=== PATIENT | female | born 1960 | race Caucasian/White ===

== ENCOUNTER 2025-04-15 01:44 | Outpatient (CLI) | payer MEDICARE, SELFPAY ==
--- NOTE | 2025-04-15 | DI.RAD_ITS ---
Exam(s) RF BARIUM SWALLOW EXAM: RF BARIUM SWALLOW CLINICAL HISTORY: DYSPHAGIA R13.10 TECHNIQUE: 2D and realtime digital imaging was performed. CONTRAST MATERIAL: Oral barium contrast was administered. COMPARISON: No exams were available for comparison FINDINGS: CHEST X-RAY: The heart and pulmonary vasculature are within normal limits. The lungs are clear. No pleural effusion or pneumothorax is present. The bones are within normal limits for the patient's age. ESOPHAGRAM: The esophagus is patent with no evidence for erosions, fold thickening, strictures, or masses. With regards to the motility, there is a normal primary stripping wave. No tertiary contractions were noted. There is no hiatal hernia or gastroesophageal reflux. The patient ingested a barium tablet without difficulty. IMPRESSION: Normal esophogram. If there is continued clinical concern, a modified barium swallow with speech pathology may be considered for further evaluation. RADIATION DOSE DELIVERED: tessie Henderson=9.6 mGy
[2025-04-15] MEDS: Barium Sulfate 98% W/W 140 ML BTL PO (10:10)
[2025-04-15] MEDS: Barium Sulfate 60% W/V 355 ML BTL PO (10:11)
== END 2025-04-15 02:04 ==
PROVIDERS: PCP Family Medicine; Visit Provider Family Medicine
DX: R13.10 Dysphagia, unspecified (principal)
CPT/HCPCS: 74221; J3490

== ENCOUNTER 2025-06-22 03:25 | Outpatient (CLI) | payer MEDICARE, SELFPAY ==
--- NOTE | 2025-06-22 | DI.RAD_ITS ---
Exam(s) RF MODIFIED SPEECH BA SWALLOW TECHNIQUE: Modified barium swallow was performed in conjunction with speech pathology. CONTRAST MATERIAL: Oral barium Oral water soluble contrast was administered. COMPARISON: No exams were available for comparison FINDINGS: Note that this is not a dedicated esophagram. Please see speech pathologist report for details. Is no obvious aspiration demonstrated during the study. IMPRESSION: No evidence of aspiration or penetration. See separate speech pathologist report RADIATION DOSE DELIVERED: tessie Henderson=5.40 mGy
--- NOTE | 2025-06-22 08:25 | ST.MBS_ITS ---
Date of Service Date of service: 06/22/25 Time of Service: 09:00 Modified Barium Swallow Study Findings: Video fluoroscopic Swallowing Evaluation (VFSE) / Modified Barium Swallow Study (MBSS) Speech Language Pathology Report Patient referred for VFSE/MBSS from Dr. Keaton Manning (PCP @ [facility]) given persistent dysphagia symptoms. HPI & Patient report of function: Marina is a 64 year old female presenting with longstanding dysphagia which began after breast cancer treatment in 2017. She suspects it is getting worse though fluctuates- some days are better than others and some days I can choke just on my own saliva. She states it is not necessarily that food sticks or goes down the wrong way but feels it doesn't go down easily. She further endorses globus sensation which is present 95% of the time- not worse with laying down/eating/stress. She does have a history of reflux and is on Omeprazole and states no current reflux issues. She endorses a 40lb weight loss over the past year but weight is stabilized, appetite/energy improved, and hair loss stopped after recently starting thyroid medication. PMHx: HORACE, hx malignant neoplasm of breast s/p chemoradiation treatment in 2017, idiopathic peripheral neuropathy, GERD on 20mg Omeprazole, thyroid nodules Previous Imaging: - 04/2019: Nasolaryngoscopy with ENT for hoarseness. 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 Had speech therapy at [facility] but didn't feel it was helpful. - 03/2025: Barium swallow study was within normal limits. IMPRESSIONS: Oral pharyngeal swallow function appears within normal limits for age. No motor or sensory impairment identified; no aspiration or pharyngeal retention appreciated on study. Education was provided to Marina to discuss most common causes of globus sensation- reflux, post nasal drip, and/or muscle tension. With her persistent hoarseness, I do anticipate at least a component of muscle tension dysphagia/MTDg and would recommend participation in outpatient ST to address this. She has participated in voice therapy in the past at [facility] back in 2019 but did not find this helpful. She requested thinking about recommendations and agreed to this clinician phoning her in 2-3 weeks to discuss. Swallow safety is preserved; swallow efficiency is preserved. Overall swallow function appears safe/WFL. Patient appears to be at low risk for potential aspiration PNA and/or pulmonary compromise and low risk for malnutrition, low risk for dehydration. Diet modification is not indicated; non-oral nutrition is not indicated. Swallow prognosis is good. Positive factors include age/severity. Negative factors include time since onset, prior participation in ST (though over 5 years ago). Patient appears to be a fair-good candidate for behavioral swallow rehabilitation. RECOMMENDATIONS: Diet Texture Recommendation:? IDDSI LEVEL SOLIDS 7-Regular Solids LIQUIDS 0-Thin Liquids MEDICATIONS As tolerated. Consider in applesauce if large otherwise whole with water Risk Management Strategies:? Behavioral reflux precautions, including upright position during + 90 mins after meals. Small bites, approx [id number] Small sips, approx 10 mL PLAN: Therapy: Recommend subsequent outpatient session with [employer] [facility] to review results of today's exam and develop treatment plan as appropriate. May consider the following: Targeted exercises to address mucle tension dysphagia (MTDg), education re: reflux management Goals: LTG: Patient will optimize swallow efficiency/comfort in 6 weeks. STG: Patient will verbalize comprehension re: swallowing anatomy and physiology, results of MBSS, and muscle tension dysphagia dx. Patient will return demonstration of tension reducing exercises independently across 2/2 sessions. Patient will verbalize comprehension re: reflux strategies. Follow-up exam: N/A OBJECTIVE Videofluoroscopic Swallow Evaluation (VFSE/MBSS) was conducted in the lateral projection by Speech-Language Pathologist, in collaboration with Radiologist, to evaluate oropharyngeal swallow function. Anatomic view under fluoroscopy: WFL PO Barium Contrast Trials Oral barium water-soluble contrast was administered as follows: IDDSI Level 0 Varibar thin liquid (40% w/v) IDDSI Level 2 Varibar nectar thick/mildly thick liquid (40% w/v) IDDSI Level 4 Varibar pudding/pureed/extremely thick (40% w/v) IDDSI Level 7 Regular Solid: 1/2 jesica cracker coated in 3 mL Varibar pudding MBSImP Component Scores: COMPONENT Scale SCORE 1 Lip closure (0-4) 0 Resulted in no labial escape 2 Hold Position (0-3) 0 Maintained a cohesive bolus between tongue to palatal seal 3 Bolus Preparation (0-4) 0 Resulted in timely and efficient chewing and mashi ng 4 Bolus Transport (0-4) 0 Was with brisk tongue motion 5 Oral Residue (0-4) 1 Was a trace, lining oral structures 6 Swallow Initiation (0-4) 3 Occurred when the bolus head was in the pyriform sinuses 7 Soft Palate Elevation (0-4) 0 Resulted in no bolus between soft palate and t he pharyngeal wall 8 Laryngeal Elevation (0-3) 1 Was decreased with partial superior movement of thyroid cartilage/partial approximation of arytenoids to epiglottic petiole 9 Anterior Hyoid Motion (0-2) 0 Demonstrated complete anterior movement 10 Epiglottic Movement (0-2) 0 Resulted in complete inversion 11 Laryngeal Closure (0-2) 0 Was complete with no air or contrast in laryngeal vestibule 12 Pharyngeal Stripping Wave (0-2) 0 Was present and complete 13 Pharyngeal Contraction (0-3) 0 Was complete 14 PES Opening (0-3) 0 Was completely distended and complete duration with no obstruction of flow 15 Tongue Base Retraction (0-4) 1 Allowed a trace column of contrast or air between tongue base and pharyngeal wall 16 Pharyngeal Residue (0-4) 1 Showed a trace within or on pharyngeal structure s 17 Esophageal Clearance (0-4) 0 Was complete, with only a coating of contrast, if any Results: COMPONENT Scale SCORE 1 Oral Score (0-18) 3 2 Pharyngeal Score (0-29) 1 3 Esophageal Score (0-4) 0 Functional Oral Intake Scale: COMPONENT Scale SCORE 1 Pre-Study (1-7) 7 Total oral intake with no restrictions 2 Post-Study (1-7) 7 Total oral intake with no restrictions Penetration-Aspiration Scale: COMPONENT Scale SCORE 1 Thin liquid (1-8) 2 Contrast entered the airway, remained above the vocal folds, and was ejected from the airway. 2 [place] thick (1-8) 1 Contrast did not enter the airway 3 Honey thick (1-8) NA 4 Pudding thick (1-8) 1 Contrast did not enter the airway 5 Cookie (1-8) 1 Contrast did not enter the airway Trialed Compensatory Strategies & Outcome: Maneuvers Successful (+) Unsuccessful (-) Postures Successful (+) Unsuccessful (-) 3 second Preparatory Set? ? Chin Tuck Posture? ? Cough? ? Posterior Head tilt? Reflexive? Cued? Throat Clear? ? Head Tilt to? Reflexive? Left? Cued? Right? ? Saliva swallow? ? Head Turn/Rotate to? ? Supraglottic Swallow? Left? ? Super-supraglottic Swallow? Right? ? Bolus Modifications Successful (+) Unsuccessful (-) Delivery/Alternating Consistencies ? Follow with Liquid Wash ? Follow with Solid Bolus? Delivery/Via Straw? ? Reduced Volume? ? Reduced Rate of Intake? ? Increased Viscosity? ? Other:?? ? Thank you for allowing us to take part in this patient's care. Please feel free to contact the [facility] Speech Language Pathology Department with any questions/concerns.
[2025-06-22] MEDS: Barium Sulfate 40% W/V 240 ML BTL 60 ML PO (09:32)
[2025-06-22] MEDS: Barium Sulfate 81% w/w for Oral Suspension 148 GM BTL 100 GM PO (09:33)
[2025-06-22] MEDS: Barium Sulfate Oral Paste 40% W/V 230 ML TUBE 60 ML PO (09:34)
== END 2025-06-22 03:45 ==
LOC: DI 03:25
PROVIDERS: PCP Family Medicine; Visit Provider Family Medicine
DX: R13.10 Dysphagia, unspecified (principal)
CPT/HCPCS: 92526; 74221